=== PATIENT | female | born 1980 ===

== ENCOUNTER 2016-12-15 16:13 | Emergency (ER) | payer OTHER ==
[2016-12-15 16:43] VITALS: PULSE 75; RESP 19
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
[2016-12-15 19:15] VITALS: BP 128/73; TEMP 97; O2SAT 99
--- NOTE | 2016-12-16 10:22 | RAD ---
PROCEDURE: Left tibia fibula 12/15/2016 HISTORY: pain COMPARISON: No prior study available for comparison TECHNIQUE: Two views of the left tibia and fibula performed FINDINGS: Current study reveals no evidence of acute displaced fracture nor dislocation. The osseous structures intact. No cortical destructive changes. Soft tissues unremarkable without evidence of subcutaneous emphysema or radiopaque foreign bodies. IMPRESSION: No evidence of acute displaced fracture nor dislocation. Followup studies could be performed if pain persists.
--- NOTE | 2016-12-16 10:25 | RAD ---
PROCEDURE: Lumbar spine 12/15/2016. . AP lateral and obliques views of the lumbar spine performed. HISTORY: pain COMPARISON: No prior study available for comparison FINDINGS: BONES: No evidence of acute displaced or anterior wedge compression fracture nor retropulsed fragments. The the vertebral bodies exhibit normal stature. Vertebral bodies and facets normally aligned. DISC SPACES: The mild disc space narrowing noted at the L5-S1 level with minimal endplate eburnation and small anterolateral osteophyte formation. The multiple minor posterior disc space narrowing noted L5 for L5 level with small anterolateral osteophyte formation as well. minor posterior disc space narrowing seen at the remaining levels. Minimal marginal anterolateral osteophyte formation. The facet joints are slightly hypertrophic at the L5-S1 and to a lesser degree L4-L5 levels. Minor degenerative spondylosis note also noted at the T10-T11 level OTHER FINDINGS: Note made of metallic wires overlying the upper pelvis region. Clinical correlation surgical history IMPRESSION: No acute fractures. Minor multilevel degenerative spondylosis as detailed above
== END 2016-12-15 19:16 | disposition home or self-care (01) ==
LOC: MERGE 16:13 → ED 16:13
DX: S39.012A Strain of muscle, fascia and tendon of lower back, initial encounter (principal); S80.12XA Contusion of left lower leg, initial encounter; V49.9XXA Car occupant (driver) (passenger) injured in unspecified traffic accident, initial encounter